=== PATIENT | female | born 1985 | race Caucasian/White ===

== ENCOUNTER 2021-01-11 07:20 | Outpatient (RCR) | payer OTHER, SELFPAY ==
[2021-01-11 08:57] LABS: Cortisol Baseline 8.94 ug/dL
== END 2021-04-11 23:59 | disposition home or self-care (01) ==
LOC: ANHVASCINF 07:20
PROVIDERS: Visit Provider Internal Medicine Endocrinology, Diabetes & Metabolism
DX: R94.7 Abnormal results of other endocrine function studies (principal)
CPT/HCPCS: 36415; 82533; 96372; J0834